=== PATIENT | male | born 1960 | race Caucasian/White ===

== ENCOUNTER 2019-02-09 15:41 | Emergency (ER) | payer SELFPAY ==
[2019-02-09 16:14] VITALS: O2SAT 95
--- NOTE | 2019-02-09 16:18 | CT ---
EXAM: Head CLINICAL INDICATION: Trauma COMPARISON: There is no previous study for comparison. TECHNIQUE: The CT scan was done using contiguous axial 2.5 mm sections through the brain. This exam was performed according to our departmental dose-optimization program, which includes automated exposure control, adjustment of the mA and/or kV according to patient size and/or use of iterative reconstruction technique. FINDINGS: There is no midline shift, mass effect, or extraaxial fluid collection. There is no evidence of acute intracranial hemorrhage, mass lesion, or cerebral edema. The ventricles and cortical sulci are normal for the patient's age. Bone window images reveal no evidence of a skull fracture. A chronic appearing medial wall blowout fracture of the right orbit is incidentally noted. IMPRESSION: No evidence of an acute intracranial process. Electronically signed by: Noe Jackson MD 02/09/2019 4:17 PM CDT
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
--- NOTE | 2019-02-09 16:30 | CT ---
EXAM: Cervical Spine CT scan CLINICAL INDICATION: Trauma COMPARISON: There is no previous study for comparison. TECHNIQUE: CT scan of the cervical spine was done using contiguous axial 3mm sections through the cervical spine with sagittal and coronal reconstructions. This exam was performed according to our departmental dose-optimization program, which includes automated exposure control, adjustment of the mA and/or kV according to patient size and/or use of iterative reconstruction technique. Findings: There is a type III odontoid fracture which extends through the base of the odontoid into the bilateral lateral masses of C2 which appears nondisplaced. Also noted are fractures of the right posterior first, second, third, and fourth ribs and the left clavicle, left first, second, and third ribs, and left body of the scapula. There are fractures of the right transverse processes of C6 and C7. Small bilateral pleural effusions are noted. No pneumothorax is seen at the lung apices. No other fracture is identified. There is mild degenerative disc disease at the C5-6 and C6-7 levels. IMPRESSION: 1. Nondisplaced type III odontoid fracture of C2. 2. Fractures of multiple bilateral ribs as described above. 3. Fracture of the left body of the scapula. Fracture of the left clavicle. 4. Fractures of the right transverse processes of C6 and C7. I telephoned these findings to Dr. Burnette at 4:28 PM central time on 02/09/2019. Electronically signed by: Noe Jackson MD 02/09/2019 4:28 PM CDT
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
[2019-02-09 17:56] VITALS: BP 120/74; TEMP 97.8
== END 2019-02-09 17:30 | disposition home or self-care (01) ==
LOC: ER 15:41
DX: S09.90XA Unspecified injury of head, initial encounter (principal); S01.81XA Laceration without foreign body of other part of head, initial encounter; Z87.891 Personal history of nicotine dependence; S12.121D Other nondisplaced dens fracture, subsequent encounter for fracture with routine healing; S12.500D Unspecified displaced fracture of sixth cervical vertebra, subsequent encounter for fracture with routine healing; S12.600D Unspecified displaced fracture of seventh cervical vertebra, subsequent encounter for fracture with routine healing; W18.30XA Fall on same level, unspecified, initial encounter; Y93.89 Activity, other specified; Y92.9 Unspecified place or not applicable; V43.92XD Unspecified car occupant injured in collision with other type car in traffic accident, subsequent encounter